=== PATIENT | female | born 1990 | race Caucasian/White ===

== ENCOUNTER 2020-05-15 18:24 | Emergency (ER) | payer MEDICAID ==
--- NOTE | 2020-05-15 19:06 | EDM.PDOC ---
ED HPI GENERAL MEDICAL PROBLEM - General Chief Complaint: Abdominal Pain Stated Complaint: STOMACH PAINS, 5 -6 WKS Time Seen by Provider: 05/15/20 18:56 Source of Information: Reports: Patient History Limitations: Reports: No Limitations - History of Present Illness INITIAL COMMENTS - FREE TEXT/NARRATIVE: 30-year-old female who was 4 previous times, this is her fourth and she is roughly 5 to 6 weeks gestation. She was seen in the clinic 3 days ago and had a beta-hCG level which was "3000 and something", also her progesterone level which was adequate. Saturday she had some lower abdominal cramping especially on the left side, she discussed this with her primary OB provider and was told if it recurs she should come to the emergency room right a way. Today she did redevelop left lower quadrant cramping, no dysuria, no bleeding. Of her 4 previous pregnancies, she had 2 miscarriages and 2 live births. No intra-abdominal surgeries, 1 D&C in the past. She otherwise feels fine. 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 Psychiatric History: Reports: Anxiety, Depression Endocrine/Metabolic History: Reports: Obesity/BMI 30+ Social & Family History - Tobacco Use Tobacco Use Status *Q: Former Tobacco User Used Tobacco, but Quit: Yes Month/Year Tobacco Last Used: 2 weeks - Caffeine Use Caffeine Use: Reports: None - Recreational Drug Use Recreational Drug Use: No ED ROS GENERAL - Review of Systems Review Of Systems: See Below Constitutional: Denies: Fever, Chills HEENT: Reports: No Symptoms Respiratory: Reports: No Symptoms Cardiovascular: Reports: No Symptoms GI/Abdominal: Reports: Abdominal Pain : Reports: No Symptoms Neurological: Reports: No Symptoms ED EXAM, GENERAL - Physical Exam Exam: See Below Exam Limited By: No Limitations General Appearance: Alert, No Apparent Distress Eye Exam: Bilateral Eye: Normal Inspection Respiratory/Chest: No Respiratory Distress GI/Abdominal: Tender (There is some tenderness to palpation in the left lower quadrant but no rebound or guarding ) Course - Vital Signs Last Recorded V/S: Last Vital Signs Temp 98.6 F 05/15/20 18:40 Pulse 84 05/15/20 18:40 Resp 16 05/15/20 18:40 BP 134/83 05/15/20 18:40 Pulse Ox 99 05/15/20 18:40 - Orders/Labs/Meds Orders: Active Orders 24 hr Category Date Time Status OB 1st Tri Sgl 1st Gest [US] Stat Exams 05/15/20 20:36 Taken Labs: Laboratory Tests 05/15/20 05/15/20 Range/Units 19:06 19:21 HCG, Quant 8800 H (0-6) mIU/mL Urine Color Yellow (YELLOW) Urine Appearance Clear (CLEAR) Urine pH 5.5 (5.0-8.0) Ur Specific [place] 1.020 (1.008-1.030) Urine Protein Negative (NEGATIVE) mg/dL Urine Glucose (UA) Negative (NEGATIVE) mg/dL Urine Ketones Negative (NEGATIVE) mg/dL Urine Occult Blood Negative (NEGATIVE) Urine Nitrite Negative (NEGATIVE) Urine Bilirubin Negative (NEGATIVE) Urine Urobilinogen 0.2 (0.2-1.0) EU/dL Ur Leukocyte Esterase Negative (NEGATIVE) Urine RBC Not seen (0-5) Urine WBC 0-5 (0-5) Ur Epithelial Cells Rare Amorphous Sediment Rare Urine Bacteria Few Urine Mucus Not seen - Re-Assessments/Exams Free Text/Narrative Re-Assessment/Exam: 05/15/20 19:05 A UA was obtained, I will also check a beta-hCG level. If it is increasing and ultrasound may be necessary to rule out ectopic . 05/15/20 21:14 UA was clear, beta-hCG was almost 9000. An ultrasound was done and shows a small intrauterine gestation sac around 6 weeks gestation. Also a corpus luteal cyst appeared to be on the left ovary which is likely causing her discomfort. Patient was reassured Departure - Departure Time of Disposition: 21:22 Disposition: Home, Self-Care 01 Clinical Impression: Pelvic pain during - Discharge Information Instructions: Pelvic Pain, Female, [id number] Referrals: Cecy Crum CNM [Primary Care Provider] - Forms: ED Department Discharge Care Plan Goals: Continue your current OB care and plan, increase activity as tolerated and call your provider if worsening or concerns. Sepsis Event Note (ED) - Evaluation Sepsis Screening Result: No Definite Risk - Focused Exam Vital Signs: Vital Signs Temp Pulse Resp BP Pulse Ox 05/15/20 18:40 98.6 F 84 16 134/83 99 - My Orders Last 24 Hours: My Active Orders 05/15/20 20:36 OB 1st Tri Sgl 1st Gest [US] Stat - Assessment/Plan Last 24 Hours: My Active Orders 05/15/20 20:36 OB 1st Tri Sgl 1st Gest [US] Stat
--- NOTE | 2020-05-16 09:55 | US ---
INDICATION: left lower abd pain COMPARISON: None FINDINGS: Uterus measures 10.9 x 6.1 x 4.6 cm. There is a fluid collection consistent with a gestational sac. It measures 1.5 x 1.0 x 0.3 cm. No pole is seen No yolk sac is identified Other findings: There is no free fluid. There is 1.7 x 1.6 x 1.6 cm cyst in the left adnexa. The right adnexa is not visualized. IMPRESSION: There is a gestational sac in the endometrial cavity. This correlates to a 5 week 6 day gestation. No pole or yolk sac yet seen
== END 2020-05-15 21:21 | disposition home or self-care (01) ==
LOC: JP.ED 18:24
DX: O99.891 Other specified diseases and conditions complicating pregnancy (principal); R10.32 Left lower quadrant pain; O99.211 Obesity complicating pregnancy, first trimester; E66.9 Obesity, unspecified; Z87.891 Personal history of nicotine dependence; Z3A.01 Less than 8 weeks gestation of pregnancy
CPT/HCPCS: 36415; 76801; 76801-26; 81001; 84702; 99283; 99284-25

== ENCOUNTER 2020-07-09 10:34 | Emergency (ER) | payer MEDICAID ==
--- NOTE | 2020-07-09 11:16 | EDM.PDOC ---
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 Psychiatric History: Reports: Anxiety, Depression Endocrine/Metabolic History: Reports: Obesity/BMI 30+ Social & Family History - Tobacco Use Tobacco Use Status *Q: Never Tobacco User - Caffeine Use Caffeine Use: Reports: None ED ROS GENERAL - Review of Systems Review Of Systems: See Below GI/Abdominal: Reports: Abdominal Pain : Reports: Dysuria ED EXAM - Physical Exam Exam: See Below Text/Narrative:: Bedside ultrasound reveals an intrauterine good movement heart tones around 160 Exam Limited By: No Limitations General Appearance: Alert, WD/WN, No Apparent Distress Respiratory/Chest: No Respiratory Distress GI/Abdominal Exam: Soft, Non-Tender Course - Vital Signs Last Recorded V/S: Last Vital Signs Temp 98.0 F 07/09/20 10:54 Pulse 88 07/09/20 10:54 Resp 14 07/09/20 10:54 BP 113/71 07/09/20 10:54 Pulse Ox 96 07/09/20 10:54 - Orders/Labs/Meds Orders: Active Orders 24 hr Category Date Time Status CULTURE URINE [RM] Urgent Lab 07/09/20 11:51 Ordered Labs: Laboratory Tests 07/09/20 Range/Units 11:16 Urine Color Yellow (YELLOW) Urine Appearance Clear (CLEAR) Urine pH 7.0 (5.0-8.0) Ur Specific [place] 1.015 (1.008-1.030) Urine Protein Negative (NEGATIVE) mg/dL Urine Glucose (UA) Negative (NEGATIVE) mg/dL Urine Ketones Negative (NEGATIVE) mg/dL Urine Occult Blood Negative (NEGATIVE) Urine Nitrite Negative (NEGATIVE) Urine Bilirubin Negative (NEGATIVE) Urine Urobilinogen 0.2 (0.2-1.0) EU/dL Ur Leukocyte Esterase Negative (NEGATIVE) Urine RBC Not seen (0-5) Urine WBC 0-5 (0-5) Ur Epithelial Cells Few Amorphous Sediment Not seen Urine Bacteria Few Urine Mucus Not seen Departure - Departure Time of Disposition: 11:54 Disposition: Home, Self-Care 01 Condition: Fair Clinical Impression: Dysuria - Discharge Information Referrals: Cecy Crum CNM [Primary Care Provider] - Forms: ED Department Discharge Additional Instructions: Please follow-up with your GLOBE 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 next week Sepsis Event Note (ED) - Evaluation Sepsis Screening Result: No Definite Risk - Focused Exam Vital Signs: Vital Signs Temp Pulse Resp BP Pulse Ox 07/09/20 10:54 98.0 F 88 14 113/71 96 - My Orders Last 24 Hours: My Active Orders 07/09/20 11:51 CULTURE URINE [RM] Urgent - Assessment/Plan Last 24 Hours: My Active Orders 07/09/20 11:51 CULTURE URINE [RM] Urgent Plan: Assessment Acuity = acute Site and laterality = dysuria Etiology = none Manifestations = none Location of injury = Home Lab values = urinalysis unremarkable cultures pending Plan Called and discussed case with vp human resources on-call at 1150 recommended watchful waiting at this time follow-up with OB next week This note was dictated using Virtual 3-D Display for Smartphones voice recognition software please call with any questions on syntax or grammar.
== END 2020-07-09 11:43 | disposition home or self-care (01) ==
LOC: JP.ED 10:34
DX: O99.891 Other specified diseases and conditions complicating pregnancy (principal); R30.0 Dysuria; O99.211 Obesity complicating pregnancy, first trimester; E66.9 Obesity, unspecified; Z3A.12 12 weeks gestation of pregnancy
CPT/HCPCS: 81001; 87086; 99282; 99284-25

== ENCOUNTER 2020-08-07 17:25 | Emergency (ER) | payer MEDICAID ==
--- NOTE | 2020-08-07 20:40 | CRLUS ---
INDICATION: Vaginal spotting TECHNIQUE: A limited transabdominal obstetrical ultrasound. COMPARISON: None available FINDINGS: A single live intrauterine gestation is seen in cephalic presentation. There is cardiac activity with a heart rate of 149 BPM. Estimated gestational age based on biparietal diameter, head circumference, abdominal circumference and femur length is 17 weeks and 6 days. anatomy is not evaluated. The placenta is posterior left. The inferior placental tip is seen approximately 2.3 cm from the internal cervical os. The amniotic fluid single deepest pocket measures 3.7 cm, with an DEMI of 10.7 cm. The cervix measures 4 cm. Neither ovary is visualized. No significant free fluid is seen. IMPRESSION: A single live intrauterine gestation at 17 weeks and 6 days by sonographic measurements. anatomy is not evaluated. A full anatomical survey is recommended at 18-20 weeks. The inferior placental tip is seen approximately 2.3 cm from the internal cervical os. Dictated by Ayaan Clements MD @ 08/07/2020 8:39:13 PM Dictated by: Ayaan Clements MD @ 08/07/2020 20:39:19 (Electronically Signed)
--- NOTE | 2020-08-07 21:03 | EDM.PDOC ---
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 Patient states that she has been having low abdominal pain all day today while she was working at [employer] and when she went to the bathroom and wiped there was bright red blood on the toilet paper. She does have a history of uterine prolapse. She is with 4 spontaneous AB's and a pair of twins (live ). She believes that she is 16 weeks gestation. She has followed by Cecy Crum in the [facility] clinic. 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 Psychiatric History: Reports: Anxiety, Depression Endocrine/Metabolic History: Reports: Obesity/BMI 30+ - Infectious Disease History Infectious Disease History: Reports: Chicken Pox Social & Family History - Tobacco Use Tobacco Use Status *Q: Former Tobacco User Years of Tobacco use: 8 Packs/Tins Daily: 0.5 Used Tobacco, but Quit: Yes Month/Year Tobacco Last Used: May 2020 Second Hand Smoke Exposure: No - Caffeine Use Caffeine Use: Reports: None - Recreational Drug Use Recreational Drug Use: No ED ROS GENERAL - Review of Systems Review Of Systems: See Below Constitutional: Reports: No Symptoms HEENT: Reports: No Symptoms Respiratory: Reports: No Symptoms Cardiovascular: Reports: No Symptoms Endocrine: Reports: No Symptoms GI/Abdominal: Reports: Abdominal Pain (Low right-sided abdominal pain) : Reports: Other (Vaginal bleeding in second trimester) Musculoskeletal: Reports: No Symptoms Skin: Reports: No Symptoms Neurological: Reports: No Symptoms Psychiatric: Reports: No Symptoms Hematologic/Lymphatic: Reports: No Symptoms Immunologic: Reports: No Symptoms ED EXAM - Physical Exam Exam: See Below Exam Limited By: No Limitations General Appearance: Alert, No Apparent Distress, Anxious Respiratory/Chest: No Respiratory Distress, Lungs Clear, Normal Breath Sounds Cardiovascular: Normal Peripheral Pulses, Regular Rate, Rhythm GI/Abdominal Exam: Normal Bowel Sounds, Soft, Non-Tender Neurological: Alert, Oriented, Normal Cognition, No Motor/Sensory Deficits Psychiatric: Normal Affect, Anxious, Tearful Skin Exam: Warm, Dry Course - Vital Signs Last Recorded V/S: Last Vital Signs Temp 37.2 C 08/07/20 18:27 Pulse 110 H 08/07/20 18:27 Resp 16 08/07/20 18:27 BP 121/69 08/07/20 18: Pulse Ox 95 08/07/20 18:27 - Orders/Labs/Meds Labs: Laboratory Tests 08/07/20 08/07/20 08/07/20 Range/Units 18:20 18:20 18:30 HCG, Quant 26085 H (0-6) mIU/mL Urine Color Yellow (YELLOW) Urine Appearance Clear (CLEAR) Urine pH 5.5 (5.0-8.0) Ur Specific [place] 1.010 (1.008-1.030) Urine Protein Negative (NEGATIVE) mg/dL Urine Glucose (UA) Negative (NEGATIVE) mg/dL Urine Ketones Negative (NEGATIVE) mg/dL Urine Occult Blood Moderate H (NEGATIVE) Urine Nitrite Negative (NEGATIVE) Urine Bilirubin Negative (NEGATIVE) Urine Urobilinogen 0.2 (0.2-1.0) EU/dL Ur Leukocyte Esterase Negative (NEGATIVE) Urine RBC 0-5 (0-5) Urine WBC Not seen (0-5) Ur Epithelial Cells Rare Amorphous Sediment Few Urine Bacteria Few Urine Mucus Rare Blood Type A POSITIVE Gel Antibody Screen Negative - Radiology Interpretation Free Text/Narrative:: I reviewed the report on the ultrasound showing a live single intrauterine gestation in cephalic presentation with a heart rate of 149 bpm. The estimated gestational age based on BPD, head circumference, abdominal circumference, and femur length is 17 weeks 6 days. The placenta is left and posterior with the inferior aspect being 2.3 cm from the cervical os. - Re-Assessments/Exams Free Text/Narrative Re-Assessment/Exam: 08/07/20 21:01 the patient underwent an ultrasound demonstrating a single live intrauterine gestation in the cephalad look presentation with cardiac cavity of a heart rate of 149 bpm. The estimated gestational age based on biparietal diameter to her, head circumference, abdominal circumference, and femur length is 17 weeks 6 days. The placenta is posterior left with the inferior tip of the placenta seen approximately 2.3 cm from the internal cervical os. There was no free fluid seen. I discussed the case with Cecy Crum[place] [address] and her blood type is a positive. There is no need for RhoGam. Cecy would like to see her in follow-up on Saturday or Saturday in the clinic. We will likely recheck an hCG at that time. I did discuss this with the patient and reassured her that I do not see anything that was worrisome at this time. W tabby will put her on light duty with work. Indications to return to the ED were discussed with the patient and she is suitable for discharge in satisfactory condition. Departure - Departure Time of Disposition: 20:56 Disposition: Home, Self-Care 01 Clinical Impression: Second trimester bleeding, Intrauterine - Discharge Information Instructions: Vaginal Bleeding During , Second Trimester Referrals: Cecy Crum CNM [Primary Care Provider] - Care Plan Goals: Your ultrasound today shows that the inferior tip of the placenta is close to the cervix and this is likely the cause for the vaginal bleeding. Please return to the ED should this significantly worsen including passage of clots or tissue. I did discuss the case with Cecy Crum who would like to see you on Saturday or Saturday in the clinic. I did place a referral for this so they will contact you to schedule this appointment. Your beta-hCG quantitative is in appropriate range at 10,000 603. Your blood type is a positive. I have provided you with a work note putting you on light duty moving this point forward until Cecy determines otherwise. Feel free to contact us should you have any questions. Sepsis Event Note (ED) - Evaluation Sepsis Screening Result: No Definite Risk - Focused Exam Vital Signs: Vital Signs Temp Pulse Resp BP Pulse Ox 08/07/20 18:27 37.2 C 110 H 16 121/69 95 08/07/20 18:04 37.2 C 110 H 16 121/69 95 - Problem List & Annotations (1) Second trimester bleeding SNOMED Code(s): 185992887 Code(s): O46.92 - ANTEPARTUM HEMORRHAGE, UNSPECIFIED, SECOND TRIMESTER Status: Acute Priority: High Current Visit: Yes - Problem List Review Problem List Initiated/Reviewed/Updated: Yes
== END 2020-08-07 21:51 | disposition home or self-care (01) ==
LOC: JP.ED 17:25
DX: O20.9 Hemorrhage in early pregnancy, unspecified (principal); O99.212 Obesity complicating pregnancy, second trimester; E66.9 Obesity, unspecified; Z3A.16 16 weeks gestation of pregnancy; Z87.891 Personal history of nicotine dependence
CPT/HCPCS: 36415; 76815; 81001; 84702; 86850; 86900; 86901; 99283; 99284-25

== ENCOUNTER 2021-01-11 03:35 | Inpatient (IN) | payer MEDICAID ==
[2021-01-11] MEDS ORDERED: Penicillin G Potassium 5 MILLUNITS in Sodium Chloride 0.9% 50 ML IV ONE (05:00)
[2021-01-11] MEDS ORDERED: Sodium Chloride 0.9% 10 ML Syringe FLUSH PRN (06:06)
--- NOTE | 2021-01-11 06:18 | PCM.LDHP ---
L&D History of Present Illness - General Date of Service: 01/11/21 (39 week, SROM) Admit Problem/Dx: Patient Status Order with Admit Dx/Problem 01/11/21 06:06 Patient Status [ADT] Routine Admission Diagnosis/Problem Admission Diagnosis/Problem and not yet delivered Source of Information: Patient History Limitations: Reports: No Limitations - History of Present Illness Introduction:: This 30 year old who is 39 week IUP, SROM at home, clear fluid at 0245. GBS positive. Has had adequate care. COntractions picking up and she feels them. reactive NST, Cat one strip.baseline FHT 150's. cervical at 0430 2 cm by RN Timing/Duration: Reports: minutes: (2-3) Location, : Reports: Abdomen Quality: Reports: Pressure Improves with: Reports: None Worsens with: Reports: None - Related Data Allergies/Adverse Reactions: Allergies Allergy/AdvReac Type Severity Reaction Status Date / Time No Known Allergies Allergy Verified 12/12/20 14:43 Home Medications: Home Meds Pnv No.95/Ferrous Fum/Folic AC [ Caplet] 1 tab PO DAILY 05/15/20 [History] Past Medical History HEENT History: Reports: Impaired Vision Cardiovascular History: Reports: None Respiratory History: Reports: None Gastrointestinal History: Reports: GERD Genitourinary History: Reports: None 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: , Spontaneous : 6 Para: 2 LMP (Approximate): (39 weeks, BASSEM 01/18/21) Other OB/BYN History: spontaneous ab x3 Musculoskeletal History: Reports: None Neurological History: Reports: None Psychiatric History: Reports: Anxiety, Depression Endocrine/Metabolic History: Reports: Obesity/BMI 30+ Hematologic History: Reports: None Immunologic History: Reports: None Oncologic (Cancer) History: Reports: None Dermatologic History: Reports: None - Infectious Disease History Infectious Disease History: Reports: Chicken Pox - Past Surgical History Head Surgeries/Procedures: Reports: None HEENT Surgical History: Reports: None Cardiovascular Surgical History: Reports: None Respiratory Surgical History: Reports: None GI Surgical History: Reports: None Female Surgical History: Reports: D&C Endocrine Surgical History: Reports: None Neurological Surgical History: Reports: None Musculoskeletal Surgical History: Reports: None Oncologic Surgical History: Reports: None Social & Family History - Tobacco Use Tobacco Use Status *Q: Never Tobacco User Second Hand Smoke Exposure: No - Caffeine Use Caffeine Use: Reports: None - Recreational Drug Use Recreational Drug Use: No H&P Review of Systems - Review of Systems: Review Of Systems: See Below General: Reports: No Symptoms HEENT: Reports: No Symptoms Pulmonary: Reports: No Symptoms Cardiovascular: Reports: No Symptoms Gastrointestinal: Reports: No Symptoms Genitourinary: Reports: No Symptoms Musculoskeletal: Reports: No Symptoms Skin: Reports: No Symptoms Psychiatric: Reports: No Symptoms Neurological: Reports: No Symptoms Hematologic/Lymphatic: Reports: No Symptoms Immunologic: Reports: No Symptoms L&D Exam - Exam Exam: See Below - Vital Signs Vital Signs: Last Vital Signs Temp 98.0 F 01/11/21 04:04 Pulse 95 01/11/21 04:04 Resp 16 01/11/21 04:04 BP 119/69 01/11/21 04:04 Pulse Ox 97 01/11/21 04:04 Weight: 335 lb - OB Specific Contraction Intensity: Mild Movement: Active Heart Tones: Present Heart Tones per Min: 150 Heart Rate (FHR) Variability: Moderate (6-25 bpm) Presentation: Vertex Estimated Weight: 7-8 pounds - Salvador Score Salvador Score Cervix Position: Posterior Salvador Score Consistency: Soft Salvador Score Effacement: 51-70% Salvador Score Dilation: 1-2 cm Salvador Score 's Station: -2 Salvador Score Total: 6 - Exam General: Alert, Oriented HEENT: PERRLA, Conjunctiva Clear Neck: Supple Lungs: Clear to Auscultation, Normal Respiratory Effort Cardiovascular: Regular Rate, Regular Rhythm GI/Abdominal Exam: Normal Bowel Sounds Rectal Exam: Normal Exam Genitourinary: Normal external exam, Enlarged uterus, Vaginal discharge Back Exam: Normal Inspection, Full Range of Motion Extremities: Normal Inspection, No Pedal Edema, Normal Capillary Refill Skin: Warm Neurological: Cranial Nerves Intact, Reflexes Equal Bilateral Psychiatric: Alert, Normal Affect, Normal Mood - Patient Data Lab Results Last 24 hrs: Laboratory Results - last 24 hr 01/11/21 01/11/21 01/11/21 Range/Units 03:42 03:43 04:23 WBC (4.5-11.0) K/uL RBC (3.30-5.50) M/uL Hgb (12.0-15.0) g/dL Hct (36.0-48.0) % MCV (80-98) fL MCH (27-31) pg MCHC (32-36) % Plt Count (150-400) K/uL Neut % (Auto) (36-66) % Lymph % (Auto) (24-44) % Emery % (Auto) (2-6) % Eos % (Auto) (2-4) % Baso % (Auto) (0-1) % Urine Color Yellow (YELLOW) Urine Appearance Turbid A (CLEAR) Urine pH 7.0 (5.0-8.0) Ur Specific [place] 1.025 (1.008-1.030) Urine Protein 100 H (NEGATIVE) mg/dL Urine Glucose (UA) Negative (NEGATIVE) mg/dL Urine Ketones Negative (NEGATIVE) mg/dL Urine Occult Blood Large H (NEGATIVE) Urine Nitrite Negative (NEGATIVE) Urine Bilirubin Negative (NEGATIVE) Urine Urobilinogen 0.2 (0.2-1.0) EU/dL Ur Leukocyte Esterase Negative (NEGATIVE) Urine RBC 5-10 H (0-5) Urine WBC 5-10 H (0-5) Ur Epithelial Cells Many Amorphous Sediment Not seen Urine Bacteria Many Urine Mucus Not seen Membrane Rupture Positive H (NEGATIVE) Urine Opiates Screen (NEGATIVE) Ur Oxycodone Screen (NEGATIVE) Urine Methadone Screen (NEGATIVE) Ur Propoxyphene Screen (NEGATIVE) Ur Barbiturates Screen (NEGATIVE) Ur Tricyclics Screen (NEGATIVE) Ur Phencyclidine Scrn (NEGATIVE) Ur Amphetamine Screen (NEGATIVE) U Methamphetamines Scrn (NEGATIVE) Urine MDMA Screen (NEGATIVE) U Benzodiazepines Scrn (NEGATIVE) U Cocaine Metab Screen (NEGATIVE) U Marijuana (THC) Screen (NEGATIVE) SARS-CoV-2 RNA (HARIKA) Negative (NEGATIVE) 01/11/21 01/11/21 Range/Units 04:24 06:00 WBC 10.9 (4.5-11.0) K/uL RBC 4.24 (3.30-5.50) M/uL Hgb 12.8 (12.0-15.0) g/dL Hct 38.7 (36.0-48.0) % MCV 91 (80-98) fL MCH 30 (27-31) pg MCHC 33 (32-36) % Plt Count 211 (150-400) K/uL Neut % (Auto) 64.9 (36-66) % Lymph % (Auto) 23.9 L (24-44) % Emery % (Auto) 8.1 H (2-6) % Eos % (Auto) 2.8 (2-4) % Baso % (Auto) 0.3 (0-1) % Urine Color (YELLOW) Urine Appearance (CLEAR) Urine pH (5.0-8.0) Ur Specific [place] (1.008-1.030) Urine Protein (NEGATIVE) mg/dL Urine Glucose (UA) (NEGATIVE) mg/dL Urine Ketones (NEGATIVE) mg/dL Urine Occult Blood (NEGATIVE) Urine Nitrite (NEGATIVE) Urine Bilirubin (NEGATIVE) Urine Urobilinogen (0.2-1.0) EU/dL Ur Leukocyte Esterase (NEGATIVE) Urine RBC (0-5) Urine WBC (0-5) Ur Epithelial Cells Amorphous Sediment Urine Bacteria Urine Mucus Membrane Rupture (NEGATIVE) Urine Opiates Screen Negative (NEGATIVE) Ur Oxycodone Screen Negative (NEGATIVE) Urine Methadone Screen Negative (NEGATIVE) Ur Propoxyphene Screen Negative (NEGATIVE) Ur Barbiturates Screen Negative (NEGATIVE) Ur Tricyclics Screen Negative (NEGATIVE) Ur Phencyclidine Scrn Negative (NEGATIVE) Ur Amphetamine Screen Negative (NEGATIVE) U Methamphetamines Scrn Negative (NEGATIVE) Urine MDMA Screen Presumptive positive H (NEGATIVE) U Benzodiazepines Scrn Negative (NEGATIVE) U Cocaine Metab Screen Negative (NEGATIVE) U Marijuana (THC) Screen Negative (NEGATIVE) SARS-CoV-2 RNA (HARIKA) (NEGATIVE) Result Diagrams: 01/11/21 06:00 - Problem List (1) GBS (group B Streptococcus carrier), +RV culture, currently SNOMED Code(s): 6245609741213, 782984582, 7447943740713 ICD Code: O99.820 - STREPTOCOCCUS B CARRIER STATE COMPLICATING Status: Acute Current Visit: Yes (2) SROM (spontaneous rupture of membranes) SNOMED Code(s): 083269405 ICD Code: HSQ3419 - Status: Acute Current Visit: Yes (3) Intrauterine SNOMED Code(s): 80861192 ICD Code: Z34.90 - ENCNTR FOR SUPRVSN OF NORMAL , UNSP, UNSP TRIMESTER Status: Acute Current Visit: Yes Problem List Initiated/Reviewed/Updated: Yes Orders Last 24hrs: Active Orders 24 hr Category Date Time Status Patient Status [ADT] Routine ADT 01/11/21 06:06 Ordered Antiembolic Devices [RC] .Routine Care 01/11/21 06:11 Ordered Communication Order [RC] ASDIRECTED Care 01/11/21 06:06 Ordered Heart Tones [RC] PER UNIT ROUTINE Care 01/11/21 06:06 Ordered Non Stress Test [RC] Click to Edit Care 01/11/21 06:06 Ordered Notify Provider Vital Signs [RC] PRN Care 01/11/21 06:06 Ordered Notify Provider [RC] PRN Care 01/11/21 06:06 Ordered OB Check [OM.PC] Click to Edit Care 01/11/21 03:42 Ordered VTE/DVT Education [RC] Click to Edit Care 01/11/21 06:11 Ordered Vital Signs [RC] PER UNIT ROUTINE Care 01/11/21 06:06 Ordered Regular Diet [DIET] Diet 01/11/21 Dinner Ordered Oxytocin/Normal Saline [Pitocin in NS 20 Units/1,000 ML Med 01/11/21 06:12 Ordered ] 20 unit in 1,000 ml IV ONETIME Penicillin G Potassium [Pfizerpen] 2.5 millunits Med 01/11/21 09:00 Active Sodium Chloride 0.9% [Normal Saline] 50 ml IV Q4H Sodium Chloride 0.9% [Saline Flush] Med 01/11/21 06:06 Ordered 10 ml FLUSH ASDIRECTED PRN DVT/VTE Prophylaxis Reflex [OM.PC] Routine Oth 01/11/21 06:06 Ordered Saline Lock Insert [OM.PC] Routine Oth 01/11/21 06:06 Ordered Resuscitation Status Routine Resus Stat 01/11/21 06:06 Ordered Medication Orders Penicillin G Potassium 2.5 (millunits/ Sodium Chloride) 50 mls @ 100 mls/hr IV Q4H SURYA Oxytocin/Sodium Chloride (Pitocin In Ns 20 Units/1,000 Ml) 20 unit in 1,000 mls @ 999 mls/hr IV ONETIME ONE; Protocol Stop: 01/11/21 07:12 Sodium Chloride (Sodium Chloride 0.9% 10 Ml Syringe) 10 ml FLUSH ASDIRECTED PRN PRN Reason: Keep Vein Open Assessment/Plan Comment:: 01/11/21 30 year old 39 weeks, SROM, erasmo Plan: monitor for active labor treat GBS plan for vaginal delivery limit vaginal checks until labor established
[2021-01-11] MEDS: Penicillin G Potassium 2.5 MILLUNITS in Sodium Chloride 0.9% 50 ML IV SCH ×3 (09:35→17:57)
--- NOTE | 2021-01-11 12:29 | PCM.PNLD ---
<Kerrie Garcia - Last Filed: 01/11/21 12:24> Labor Progress Note - VS & Meds Vital Signs: Last Vital Signs Temp 97.9 F 01/11/21 07:50 Pulse 110 H 01/11/21 11:58 Resp 18 01/11/21 07:50 BP 130/72 01/11/21 11:58 Pulse Ox 97 01/11/21 11:58 Active Medications: Current Medications Penicillin G Potassium 2.5 (millunits/ Sodium Chloride) 50 mls @ 100 mls/hr IV Q4H SURYA Last Admin: 01/11/21 09:35 Dose: 100 mls/hr Documented by: Sodium Chloride (Sodium Chloride 0.9% 10 Ml Syringe) 10 ml FLUSH ASDIRECTED PRN PRN Reason: Keep Vein Open Discontinued Medications Penicillin G Potassium 5 (millunits/ Sodium Chloride) 50 mls @ 100 mls/hr IV ONETIME ONE Stop: 01/11/21 05:29 Last Admin: 01/11/21 05:27 Dose: 100 mls/hr Documented by: Oxytocin/Sodium Chloride (Pitocin In Ns 20 Units/1,000 Ml) 20 unit in 1,000 mls @ 999 mls/hr IV ONETIME ONE; Protocol Stop: 01/11/21 07:12 Oxytocin/Sodium Chloride (Pitocin In Ns 20 Units/1,000 Ml) Confirm Administered Dose 20 unit in 1,000 mls @ as directed .ROUTE .STK-MED ONE Stop: 01/11/21 10:23 - Uterine Contractions Uterine Monitoring Mode: External [place] Contraction Frequency (min): 1-3 Contraction Duration (sec): 40-70 Contraction Intensity: Mild Uterine Resting Tone: Soft - Monitoring Monitor Mode: External Ultrasound Heart Rate (FHR) Baseline: 150 Heart Rate (FHR) Per Doppler: 150 Heart Rate (FHR) Variability: Moderate (6-25 bpm) Accelerations: Present, 15x15 Decelerations: None Strip Review: Category I - Vaginal Exam Dilation (cm): 2.0 Effacement (Percent): 75 Station: 0 Cervical Position: Midposition Sterile Vaginal Exam Performed By: Jenna Sierra - Labor Progress (Free Text) Labor Progress: Beth reports that some of her contractions are strong with a lot of pressure, where others are pretty mild. She is coping well with labor pains, partner and son at bedside. EFM shows a category 1 tracing and somewhat irregular contractions. SVE was 1-2/75/0 and midposition. SROM was at 0250 this morning, she has recieved abx for GBS postive status. Plan will be to start pitocin and titrate per protocol. Will recheck cervix in a few hours. Discussed with patient options for pain management moving forward before an epidural to include hydrotherapy and IV medications. <Marielena Sierra - Last Filed: 01/11/21 12:33> Labor Progress Note - VS & Meds Vital Signs: Last Vital Signs Temp 97.9 F 01/11/21 07:50 Pulse 110 H 01/11/21 11:58 Resp 18 01/11/21 07:50 BP 130/72 01/11/21 11:58 Pulse Ox 97 01/11/21 11:58 Active Medications: Current Medications Penicillin G Potassium 2.5 (millunits/ Sodium Chloride) 50 mls @ 100 mls/hr IV Q4H SURYA Last Admin: 01/11/21 09:35 Dose: 100 mls/hr Documented by: Oxytocin/Sodium Chloride (Pitocin In Ns 20 Units/1,000 Ml) 20 unit in 1,000 mls @ 6 mls/hr IV TITRATE SURYA; Protocol Sodium Chloride (Sodium Chloride 0.9% 10 Ml Syringe) 10 ml FLUSH ASDIRECTED PRN PRN Reason: Keep Vein Open Discontinued Medications Penicillin G Potassium 5 (millunits/ Sodium Chloride) 50 mls @ 100 mls/hr IV ONETIME ONE Stop: 01/11/21 05:29 Last Admin: 01/11/21 05:27 Dose: 100 mls/hr Documented by: Oxytocin/Sodium Chloride (Pitocin In Ns 20 Units/1,000 Ml) Confirm Administered Dose 20 unit in 1,000 mls @ as directed .ROUTE .STK-MED ONE Stop: 01/11/21 10:23 Last Admin: 01/11/21 12:27 Dose: 6 mls/hr Documented by: - Labor Progress (Free Text) Labor Progress: I personally performed or re-performed the physical examination and medical decision making. I have verified all student documentation or findings, including history, physical exam and/or medical decision making. Marielena Sierra [employer] EXECUTIVE DIRECTOR CNM CFNP
--- NOTE | 2021-01-11 14:55 | PCM.PNLD ---
<Kerrie Garcia - Last Filed: 01/11/21 14:48> Labor Progress Note - VS & Meds Vital Signs: Last Vital Signs Temp 97.9 F 01/11/21 07:50 Pulse 90 01/11/21 13:59 Resp 18 01/11/21 07:50 BP 123/79 01/11/21 13:59 Pulse Ox 97 01/11/21 13:58 Active Medications: Current Medications Penicillin G Potassium 2.5 (millunits/ Sodium Chloride) 50 mls @ 100 mls/hr IV Q4H SURYA Last Admin: 01/11/21 13:05 Dose: 100 mls/hr Documented by: Oxytocin/Sodium Chloride (Pitocin In Ns 20 Units/1,000 Ml) 20 unit in 1,000 mls @ 6 mls/hr IV TITRATE SURYA; Protocol Last Titration: 01/11/21 14:46 Dose: 5 munits/min, 15 mls/hr Documented by: Sodium Chloride (Sodium Chloride 0.9% 10 Ml Syringe) 10 ml FLUSH ASDIRECTED PRN PRN Reason: Keep Vein Open Discontinued Medications Penicillin G Potassium 5 (millunits/ Sodium Chloride) 50 mls @ 100 mls/hr IV ONETIME ONE Stop: 01/11/21 05:29 Last Admin: 01/11/21 05:27 Dose: 100 mls/hr Documented by: Oxytocin/Sodium Chloride (Pitocin In Ns 20 Units/1,000 Ml) Confirm Administered Dose 20 unit in 1,000 mls @ as directed .ROUTE .STK-MED ONE Stop: 01/11/21 10:23 Last Admin: 01/11/21 13:05 Dose: Not Given Documented by: - Uterine Contractions Uterine Monitoring Mode: External [place] Contraction Frequency (min): 2-3 Contraction Duration (sec): 40-50 Contraction Intensity: Moderate Uterine Resting Tone: Soft - Monitoring Monitor Mode: External Ultrasound Heart Rate (FHR) Baseline: 150 Heart Rate (FHR) Per Doppler: 150 Heart Rate (FHR) Variability: Moderate (6-25 bpm) Accelerations: Present, 15x15 Decelerations: None Strip Review: Category I - Vaginal Exam Dilation (cm): 3 Effacement (Percent): 75 Station: 0 Cervical Position: Midposition Sterile Vaginal Exam Performed By: Jenna Sierra - Labor Progress (Free Text) Labor Progress: Beth is feeling the contractions more now. She is on 6mu of pitocin and has contractions every 2-3minutes. She is tolerating labor pain well with movement and is breathing well through them. SVE is 3/75/0 and midposition. Plan will be to labor a little longer before epidural. Discussed that she still has IV medications as an option until then. EFM is category 1 with a baseline of 135bpm. <Marielena Sierra - Last Filed: 01/11/21 18:52> Labor Progress Note - VS & Meds Vital Signs: Last Vital Signs Temp 97.9 F 01/11/21 07:50 Pulse 90 01/11/21 13:59 Resp 18 01/11/21 07:50 BP 123/79 01/11/21 13:59 Pulse Ox 97 01/11/21 13:58 Active Medications: Current Medications Diphenhydramine HCl (Diphenhydramine 50 Mg/Ml Sdv) 25 mg IVPUSH Q6H PRN PRN Reason: Itching Diphenhydramine HCl (Diphenhydramine 50 Mg/Ml Sdv) 50 mg IVPUSH Q6H PRN PRN Reason: Itching Ephedrine Sulfate (Ephedrine 50 Mg/Ml Sdv) 10 mg IVPUSH ASDIRECTED PRN PRN Reason: Hypotension Last Admin: 01/11/21 18:13 Dose: 10 mg Documented by: Penicillin G Potassium 2.5 (millunits/ Sodium Chloride) 50 mls @ 100 mls/hr IV Q4H SURYA Last Admin: 01/11/21 17:57 Dose: 100 mls/hr Documented by: Oxytocin/Sodium Chloride (Pitocin In Ns 20 Units/1,000 Ml) 20 unit in 1,000 mls @ 6 mls/hr IV TITRATE SURYA; Protocol Last Titration: 01/11/21 15:37 Dose: 6 munits/min, 18 mls/hr Documented by: Ropivacaine 200 mg/ Premix 100 mls @ 0 mls/hr EPIDUR ASDIRECTED SURYA Naloxone HCl (Naloxone 0.4 Mg/Ml Sdv) 0.1 mg IVPUSH ASDIRECTED PRN PRN Reason: Oversedation Sodium Chloride (Sodium Chloride 0.9% 10 Ml Syringe) 10 ml FLUSH ASDIRECTED PRN PRN Reason: Keep Vein Open Discontinued Medications Ephedrine Sulfate (Ephedrine 50 Mg/Ml Sdv) 5 mg IVPUSH ONETIME STA Stop: 01/11/21 17:26 Fentanyl (Fentanyl 100 Mcg/2 Ml Sdv) 50 mcg IVPUSH ONETIME ONE Stop: 01/11/21 15:48 Last Admin: 01/11/21 17:54 Dose: Not Given Documented by: Penicillin G Potassium 5 (millunits/ Sodium Chloride) 50 mls @ 100 mls/hr IV ONETIME ONE Stop: 01/11/21 05:29 Last Admin: 01/11/21 05:27 Dose: 100 mls/hr Documented by: Oxytocin/Sodium Chloride (Pitocin In Ns 20 Units/1,000 Ml) Confirm Administered Dose 20 unit in 1,000 mls @ as directed .ROUTE .STK-MED ONE Stop: 01/11/21 10:23 Last Admin: 01/11/21 13:05 Dose: Not Given Documented by: Lactated Ringer's (Ringers, Lactated) 1,000 mls @ 999 mls/hr IV .BOLUS ONE Stop: 01/11/21 18:16 Last Admin: 01/11/21 17:57 Dose: 999 mls/hr Documented by: - Labor Progress (Free Text) Labor Progress: I personally performed or re-performed the physical examination and medical decision making. I have verified all student documentation or findings, including history, physical exam and/or medical decision making. Marielena Sierra APRN, CNM CFNANO
[2021-01-11] MEDS ORDERED: fentaNYL 100 MCG/2 ML SDV IVPUSH ONE (15:47)
[2021-01-11] MEDS ORDERED: Lactated Ringers 1,000 ML IV ONE (17:16)
[2021-01-11] MEDS ORDERED: Naloxone 0.4 MG/ML SDV IVPUSH PRN (17:16)
[2021-01-11] MEDS ORDERED: diphenhydrAMINE 50 MG/ML SDV IVPUSH PRN ×2 (17:16)
[2021-01-11] MEDS ORDERED: ePHEDrine 50 MG/ML SDV IVPUSH STA (17:25)
[2021-01-11] MEDS ORDERED: Ropivacaine 200 MG in Premix Bag 1 BAG EPIDUR SCH (17:30)
[2021-01-11] MEDS: ePHEDrine 50 MG/ML SDV IVPUSH PRN ×2 (18:13→18:37)
--- NOTE | 2021-01-11 18:57 | PCM.PNLD ---
Labor Progress Note - VS & Meds Vital Signs: Last Vital Signs Temp 97.9 F 01/11/21 07:50 Pulse 90 01/11/21 13:59 Resp 18 01/11/21 07:50 BP 123/79 01/11/21 13:59 Pulse Ox 97 01/11/21 13:58 Active Medications: Current Medications Diphenhydramine HCl (Diphenhydramine 50 Mg/Ml Sdv) 25 mg IVPUSH Q6H PRN PRN Reason: Itching Diphenhydramine HCl (Diphenhydramine 50 Mg/Ml Sdv) 50 mg IVPUSH Q6H PRN PRN Reason: Itching Ephedrine Sulfate (Ephedrine 50 Mg/Ml Sdv) 10 mg IVPUSH ASDIRECTED PRN PRN Reason: Hypotension Last Admin: 01/11/21 18:13 Dose: 10 mg Documented by: Penicillin G Potassium 2.5 (millunits/ Sodium Chloride) 50 mls @ 100 mls/hr IV Q4H SURYA Last Admin: 01/11/21 17:57 Dose: 100 mls/hr Documented by: Oxytocin/Sodium Chloride (Pitocin In Ns 20 Units/1,000 Ml) 20 unit in 1,000 mls @ 6 mls/hr IV TITRATE SURYA; Protocol Last Titration: 01/11/21 15:37 Dose: 6 munits/min, 18 mls/hr Documented by: Ropivacaine 200 mg/ Premix 100 mls @ 0 mls/hr EPIDUR ASDIRECTED SURYA Naloxone HCl (Naloxone 0.4 Mg/Ml Sdv) 0.1 mg IVPUSH ASDIRECTED PRN PRN Reason: Oversedation Sodium Chloride (Sodium Chloride 0.9% 10 Ml Syringe) 10 ml FLUSH ASDIRECTED PRN PRN Reason: Keep Vein Open Discontinued Medications Ephedrine Sulfate (Ephedrine 50 Mg/Ml Sdv) 5 mg IVPUSH ONETIME STA Stop: 01/11/21 17:26 Fentanyl (Fentanyl 100 Mcg/2 Ml Sdv) 50 mcg IVPUSH ONETIME ONE Stop: 01/11/21 15:48 Last Admin: 01/11/21 17:54 Dose: Not Given Documented by: Penicillin G Potassium 5 (millunits/ Sodium Chloride) 50 mls @ 100 mls/hr IV ONETIME ONE Stop: 01/11/21 05:29 Last Admin: 01/11/21 05:27 Dose: 100 mls/hr Documented by: Oxytocin/Sodium Chloride (Pitocin In Ns 20 Units/1,000 Ml) Confirm Administered Dose 20 unit in 1,000 mls @ as directed .ROUTE .STK-MED ONE Stop: 01/11/21 10:23 Last Admin: 01/11/21 13:05 Dose: Not Given Documented by: Lactated Ringer's (Ringers, Lactated) 1,000 mls @ 999 mls/hr IV .BOLUS ONE Stop: 01/11/21 18:16 Last Admin: 01/11/21 17:57 Dose: 999 mls/hr Documented by: - Uterine Contractions Uterine Monitoring Mode: External [place] Contraction Frequency (min): 1-3 Contraction Duration (sec): 40-80 Contraction Intensity: Mild to Moderate Uterine Resting Tone: Soft - Monitoring Monitor Mode: External Ultrasound Heart Rate (FHR) Baseline: 135 Heart Rate (FHR) Per Doppler: 150 Heart Rate (FHR) Variability: Moderate (6-25 bpm) Accelerations: Present, 15x15 Decelerations: None Strip Review: Category I - Vaginal Exam Dilation (cm): 5 Effacement (Percent): 80 Station: 0 Cervical Position: Anterior Sterile Vaginal Exam Performed By: Jenna Sierra - Labor Progress (Free Text) Labor Progress: 01/11/21 slow cervical change and intolerance of labor. Now . cat 3 strip with decelerations, despite several interventions: stopping Pitocin, position change, fluid bolus. Plan stat c section called, crew notified.
[2021-01-11] MEDS ORDERED: Propofol 200 MG/20 ML SDV ONE (19:03)
[2021-01-11] MEDS ORDERED: Dexamethasone 4 MG/ML SDV ONE (19:03)
[2021-01-11] MEDS ORDERED: Ondansetron 4 MG/2 ML SDV ONE (19:03)
[2021-01-11] MEDS ORDERED: Succinylcholine 200 MG/10 ML MDV ONE (19:03)
[2021-01-11] MEDS ORDERED: Rocuronium 50 MG/5 ML Vial ONE (19:03)
[2021-01-11] MEDS ORDERED: Glycopyrrolate 0.2 MG/ML 5 ML MDV ONE (19:03)
[2021-01-11] MEDS ORDERED: Neostigmine Methylsulfate 1 MG/ML 5 ML Syringe ONE (19:03)
[2021-01-11] MEDS ORDERED: fentaNYL 250 MCG/5 ML SDV ONE ×2 (19:04→19:43)
[2021-01-11] MEDS ORDERED: Oxytocin 10 Units/1 ML SDV ONE ×2 (19:05→19:10)
[2021-01-11] MEDS ORDERED: Ropivacaine 100 ML ONE (19:09)
[2021-01-11] MEDS ORDERED: Oxytocin 10 Units/1 ML SDV IM ONE (19:15)
[2021-01-11] MEDS ORDERED: Midazolam 1 MG/ML 2 ML SDV ONE (19:19)
[2021-01-11] MEDS ORDERED: cefOXitin 2 GM Vial IRR ONE (19:30)
[2021-01-11] MEDS ORDERED: Clotrimazole 1% Crm 30 GM Tube ONE (20:15)
[2021-01-11] MEDS ORDERED: Tranexamic Acid 1,000 MG in Sodium Chloride 0.9% 50 ML IV ONE (20:20)
[2021-01-11] MEDS ORDERED: Sodium Chloride 0.9% 1,000 ML IV SCH (20:20)
[2021-01-11] MEDS ORDERED: Sodium Chloride 0.9% 50 ML ONE (20:21)
[2021-01-11] MEDS ORDERED: HYDROmorphone/Normal Saline 15 MG/30 ML PCA IV PRN (21:55)
[2021-01-11] MEDS ORDERED: Naloxone 0.4 MG/ML SDV IV PRN (22:00)
[2021-01-11] MEDS ORDERED: Ondansetron 4 MG/2 ML SDV IVPUSH PRN (22:07)
[2021-01-11] MEDS: cefOXitin 2 GM in Sodium Chloride 0.9% 50 ML IV SCH (22:22)
[2021-01-11] MEDS: Ibuprofen 600 MG Tab PO SCH (22:29)
[2021-01-11] MEDS: Clotrimazole 1% Crm 30 GM Tube TOP SCH (22:30)
--- NOTE | 2021-01-11 23:00 | ANES ---
DATE OF SERVICE: 01/11/2021 INDICATIONS: Ms. Calixto is a 30-year-old female patient, I was called by Marielena Sierra CNM, to evaluate her for a labor epidural. She is approximately 4 cm and this is her 3rd baby. Risks and benefits of procedure were explained to the patient, she wished to proceed with labor epidural. TECHNIQUE: She was placed in a sitting position. Her back was prepped x3 with Betadine, 1% lidocaine skin was used. The epidural was placed to approximately L3-4 using a 17-gauge Tuohy needle and loss of resistance technique. The epidural had very good feel throughout, and the epidural space was easily identified. There was negative CSF, negative blood, negative paresthesias noted. Therefore, catheter was threaded to 17 cm at the skin. There was negative CSF, negative blood, and negative paresthesias with the catheter. Therefore, the catheter was then secured with Tegaderm and tape. 1.5% lidocaine test dose with epinephrine was given, and this test dose was negative. The patient was then placed in a supine position where a 12 mL bolus of 0.2% ropivacaine was given. The patient had good relief from 0.2% bolus, therefore 0.2% ropivacaine drip was started at 12 mL/h. The patient tolerated the labor epidural very nicely. Her vital signs remained stable throughout the procedure, and nurse was with me for the entire procedure. There were no anesthesia complications noted. We will continue to monitor her. Jeremías Peraza CRNA /[id number]
[2021-01-12] MEDS ORDERED: Tranexamic Acid 1,000 MG in Sodium Chloride 0.9% 50 ML IV ONE ×2
[2021-01-12] MEDS: Penicillin G Potassium 2.5 MILLUNITS in Sodium Chloride 0.9% 50 ML IV SCH (00:36)
[2021-01-12] MEDS: Acetaminophen 500 MG Tab PO SCH ×4 (00:40→18:25)
[2021-01-12] MEDS ORDERED: Dextrose 5%-Lactated Ringers 1,000 ML IV SCH ×2 (03:45→11:45)
[2021-01-12] MEDS: cefOXitin 2 GM in Sodium Chloride 0.9% 50 ML IV SCH ×4 (03:54→21:24)
[2021-01-12] MEDS: Ibuprofen 600 MG Tab PO SCH ×4 (03:54→21:24)
[2021-01-12] MEDS: hydrOXYzine HCl 25 MG Tab PO PRN ×2 (07:51→18:25)
[2021-01-12] MEDS: Clotrimazole 1% Crm 30 GM Tube TOP SCH ×2 (08:42→21:25)
[2021-01-12] MEDS: Docusate Sodium 100 MG Cap PO SCH ×2 (08:43→21:25)
[2021-01-12] MEDS: Bisacodyl 5 MG Tab PO SCH ×2 (08:43→21:24)
[2021-01-12] MEDS: Enoxaparin 60 MG/0.6 ML Syringe SUBCUT SCH (08:43)
--- NOTE | 2021-01-12 10:53 | PN ---
DATE OF SERVICE: 01/12/2021 SUBJECTIVE: Georgiana is postop day 1 following an emergency section last evening. She reports her pain is controlled. She is using a SLATE SPLITTER. She does have Edmonds catheter in, urine output was 750. She has a RAMAN drain draining 10 mL of a red drainage. Oral intake was 520. REVIEW OF SYSTEMS: Remainder of review of systems negative for any pertinent positives and negatives. OBJECTIVE: GENERAL: Georgiana is a very pleasant 30-year-old female. She is alert and orientated. VITAL SIGNS: TPR is 97.7, 99, 18, blood pressure 106/53. HEENT: Negative. NECK: Supple. HEART: Regular rate and rhythm. LUNGS: Clear. ABDOMEN: Aquacel dressings on. EXTREMITIES: Without peripheral edema. GENITOURINARY: Edmonds catheter is intact. ASSESSMENT: Emergency section and repair of incarcerated umbilical hernia, delivery of viable baby girl, scores 2 and 8 and then 8 and 8. Date: 01/11/2021. Surgeon: Shane Boogie MD. PLAN: 1. Lovenox 60 mg subcu daily. 2. Decrease IV to 100 mL per hour. 3. Discontinue Edmonds. 4. Discontinue SLATE SPLITTER and continuous pulse ox. 5. Oxycodone 5 mg q.4 hours p.r.n. pain. 6. Colace 100 mg p.o. b.i.d. 7. Dulcolax 2 tablets b.i.d. until the patient has bowel movement. 8. May shower. 9. We will evaluate p.r.n. or in a.m. Myesha Daniles PA-C /[id number]
[2021-01-13] MEDS: hydrOXYzine HCl 25 MG Tab PO PRN ×4 (00:13→15:59)
[2021-01-13] MEDS: Acetaminophen 500 MG Tab PO SCH ×4 (00:14→19:28)
[2021-01-13] MEDS: Ibuprofen 600 MG Tab PO SCH ×4 (03:32→21:43)
[2021-01-13] MEDS: cefOXitin 2 GM in Sodium Chloride 0.9% 50 ML IV SCH ×4 (03:32→21:41)
[2021-01-13] MEDS ORDERED: Dextrose 5%-Lactated Ringers 1,000 ML IV SCH (07:12)
[2021-01-13] MEDS: Clotrimazole 1% Crm 30 GM Tube TOP SCH ×2 (09:03→21:44)
[2021-01-13] MEDS: Enoxaparin 60 MG/0.6 ML Syringe SUBCUT SCH (09:03)
[2021-01-13] MEDS: Calcium Carbonate 500 MG Tab.Chew PO PRN ×2 (10:58→14:14)
[2021-01-13] MEDS: oxyCODONE 5 MG Tab PO PRN ×3 (12:58→23:51)
[2021-01-13] MEDS: Cyclobenzaprine 10 MG Tab PO PRN ×2 (14:13→21:47)
[2021-01-14] MEDS: Ibuprofen 600 MG Tab PO SCH ×2 (03:53→09:22)
[2021-01-14] MEDS: cefOXitin 2 GM in Sodium Chloride 0.9% 50 ML IV SCH (03:53)
[2021-01-14] MEDS: Acetaminophen 500 MG Tab PO SCH ×2 (07:16)
[2021-01-14] MEDS: Clotrimazole 1% Crm 30 GM Tube TOP SCH (09:22)
[2021-01-14] MEDS: Enoxaparin 60 MG/0.6 ML Syringe SUBCUT SCH (09:22)
--- NOTE | 2021-01-17 10:48 | DISCH ---
FINAL DIAGNOSES: 1. Term with failure to progress. 2. Umbilical hernia. OPERATIVE PROCEDURE: This was done on 01/11, section with concurrent umbilical hernia repair. SUMMARY: This is a 30-year-old female presenting with term . She entered with ongoing labor but failed to progress and then began showing some intermittent decelerations. The patient was brought to the operating room and a section was performed. Baby but then it came up to 8 at five minutes and the baby looks good at this point. The patient is tolerating regular diet, moving bowels, and will be discharged home with Flexeril 10 mg q.8 hours p.r.n. muscle spasm, #20; oxycodone 5 mg q.6 hours p.r.n. pain, #12, along with Tylenol and ibuprofen p.r.n. and instructed to finish off the vitamins. She has quite a bit of edema in the lower midline incision yesterday. She will be following with Patrizia [facility] on Saturday, 01/23 for staple removal. /[id number]
--- NOTE | 2021-01-17 11:51 | PN ---
DATE OF SERVICE: 01/13/2021 The patient is postop day 1-1/2 from section. Clinically, she is doing well. Bowels are moving. Tolerating diet and switch over to oral pain medication. She may be ready for discharge home tomorrow. Shane Boogie MD /[id number]
--- NOTE | 2021-01-28 21:22 | OR ---
DATE OF PROCEDURE: 01/11/2021 SURGEON: Shane Boogie MD PREOPERATIVE DIAGNOSIS: Term with failure to progress. POSTOPERATIVE DIAGNOSES: 1. Term with failure to progress. 2. Incarcerated umbilical hernia. OPERATIVE PROCEDURES: 1. section (30120). 2. Repair of incarcerated umbilical hernia (66713). ANESTHESIA: General. [employer]CE[employer]AT CAPTAIN: Vernell Sierra CNM. INDICATION FOR PROCEDURE: A 30-year-old female presenting with ongoing labor and at this point failure to progress. The baby did have some decelerations, which appeared to be stable as of this time, but given this, the plan will be to proceed with a general anesthetic and a midline abdominal incision for rapid delivery of the baby. The potential risks of the procedure were reviewed with the patient including bleeding, infection, injury to underlying viscera were all reviewed, and the patient wishes to proceed. DETAILS OF PROCEDURE: The patient was taken to the operating room and placed in a supine position with a roll underneath the right hip. Edmonds catheter was inserted and the abdomen prepped and draped. Following induction of general anesthetic, midline incision from the umbilicus down to the pubis was made and carried down through the full-thickness of the abdominal wall. The peritoneal reflection of the bladder on the uterus was then divided and the bladder reflected downward. A transverse lower uterine segment incision was made. The baby's head was noted to be quite impacted into the pelvis and this was manually pushed upward allowing the delivery of the baby. There was an occiput posterior presentation likely accounting for at least some of the failure to progress. The baby was slightly dusky on delivery and after cords were cut, routine care was given per Vernell Sierra CNM, off the field. Initial score was 2, but at 5 minutes, the score improved to 8 and from that point on, appeared to be doing very well. The patient was given intrauterine oxytocin and IV cefoxitin. Good uterine contractions were noted and the placenta and membranes were delivered without difficulty. Uterus was then closed with a 2-0 Vicryl stitch as was the peritoneal reflection of the bladder on the uterus. The patient was noted to have an umbilical hernia, which had some incarcerated omentum within it. The latter was then reduced and a [id number] stitch used with #2 Vicryl stitch to close the umbilical hernia defect. Following this, the posterior peritoneum was closed with #2 Vicryl stitch as was the anterior fascia. Skin and subcutaneous tissue were then approximated with some 3-0 and 4-0 Vicryl stitches deep after those areas had been irrigated with antibiotic-containing saline solution, and the skin was closed with ceasar. Dressing was applied. The patient was taken to the recovery room in satisfactory condition. Per ACOG guidelines, nurse cloth carrier Vernell Sierra's presence and assistance in this case was necessary and indicated. Shane Boogie MD Job #: [id number]
== END 2021-01-14 10:48 | disposition home or self-care (01) | DRG 787 ==
LOC: JP.OBCHECK 03:35 → JP.OB 03:35 → JP.OBCHECK 05:07 → JP.OB 05:07 → OBSVTOIN 19:30 → JP.MS 21:45
PROVIDERS: ADMIT Nurse Practitioner Family; ATTEND Surgery
PROC: 3E0R3BZ Introduction of Anesthetic Agent into Spinal Canal, Percutaneous Approach (ICD-10-PCS; principal; 2021-01-11)
PROC: 00HU33Z Insertion of Infusion Device into Spinal Canal, Percutaneous Approach (ICD-10-PCS; 2021-01-11)
PROC: 10D00Z1 Extraction of Products of Conception, Low, Open Approach (ICD-10-PCS; 2021-01-11)
PROC: 0WQF0ZZ Repair Abdominal Wall, Open Approach (ICD-10-PCS; 2021-01-11)
DX: O99.824 Streptococcus B carrier state complicating childbirth (principal); K42.0 Umbilical hernia with obstruction, without gangrene; O99.62 Diseases of the digestive system complicating childbirth; K21.9 Gastro-esophageal reflux disease without esophagitis; O99.214 Obesity complicating childbirth; Z20.822 Contact with and (suspected) exposure to COVID-19; Z3A.39 39 weeks gestation of pregnancy; Z37.0 Single live birth
CPT/HCPCS: 36415; 51702; 80305-QW; 81001; 84112; 85025; 85027; 88307; 94762; 99211; A9270-GY; J0330; J0694; J1100; J1170; J1650; J2250; J2405; J2540; J2590; J2704; J2710; J2795; J3010; J3490; J7120; J7121; U0002

== ENCOUNTER 2021-10-03 20:44 | Emergency (ER) | payer MEDICAID ==
[2021-10-03 22:09] LABS: ESTIMATED GFR 121 mL/min (>60)
[2021-10-03] MEDS ORDERED: Acetaminophen 500 MG Tab PO ONE (22:46)
[2021-10-03] MEDS ORDERED: cefTRIAXone 1 GM, Lidocaine 1% 2.1 ML IM ONE ×2 (23:12)
[2021-10-03] MEDS ORDERED: Sodium Chloride 0.9% 75 ML IV STA (23:52)
[2021-10-03] MEDS ORDERED: Iopamidol 755 Mg/ML 100 ML Bottle IV STA (23:52)
== END 2021-10-04 01:11 | disposition home or self-care (01) ==
LOC: JP.ED 20:44
DX: R50.9 Fever, unspecified (principal); E66.9 Obesity, unspecified; Z68.43 Body mass index [BMI] 50.0-59.9, adult
CPT/HCPCS: 36415; 71046; 71275; 80053; 81001; 84145; 84439; 84443; 85025; 85379; 86140; 86618; 87086; 96372; 99284; A9270; J0696; J3490; Q9967; 87040; 99283

== ENCOUNTER 2022-02-16 09:12 | Emergency (ER) | payer MEDICAID ==
[2022-02-16 12:08] LABS: ESTIMATED GFR 127 mL/min (>60)
== END 2022-02-16 14:16 | disposition home or self-care (01) ==
LOC: JP.ED 09:12
DX: R10.31 Right lower quadrant pain (principal); K21.9 Gastro-esophageal reflux disease without esophagitis; E66.9 Obesity, unspecified; Z68.43 Body mass index [BMI] 50.0-59.9, adult
CPT/HCPCS: 36415; 74176; 74176-26; 80053; 81001; 81025; 85025; 86140; 99284